=== PATIENT | male | born 1950 | race Caucasian/White ===

== ENCOUNTER → 2017-12-12 | Outpatient (CLI) | payer MEDICARE, MEDICAID ==
[~2017-12-12] MED LIST: COLACE100 MG PO; FLOMAX0.4 MG PO; HYZAAR 50-12.51 EACH PO; LUNESTA3 MG PO; METFORMIN HCL500 MG PO; MOBIC15 MG PO; OMEPRAZOLE 20 M20 M1 PO; OXYCODONE HCL 55 MG PO; PERCOCET PO; XARELTO10 MG PO; ZANAFLEX4 MG PO
== END ==
LOC: M.MRI 13:58
DX: M17.12 Unilateral primary osteoarthritis, left knee (principal)

== ENCOUNTER → 2018-01-06 | Outpatient (CLI) | payer MEDICARE, MEDICAID ==
[2018-01-01 09:15] LABS: HEMATOCRIT 47.9 % (42.0-52.0); HEMOGLOBIN 16.3 gm/dL (14.0-18.0); MCH 31.7 pg (26.0-34.0); MCHC 34.1 g/dL (28.0-37.0); MCV 92.8 fL (80.0-100.0); MPV 7.2 fl. (7.2-11.1); RBC 5.16 mil/uL (4.50-6.00); RDW-CV 13.9 % (10.5-14.5); WBC 9.8 thou/uL (4.0-11.0)
[2018-01-01 09:46] LABS: ALBUMIN 3.7 g/dL (3.4-5.0); CALCIUM 8.7 mg/dL (8.5-10.1); CREATININE 0.8 mg/dL (0.6-1.3); POTASSIUM 4.3 mmol/L (3.5-5.1); TOTAL BILIRUBIN 0.2 mg/dL (<0.1-1.0); TOTAL PROTEIN 8.1 g/dL (6.4-8.2)
[2018-01-01 10:14] LABS: URINE BILIRUBIN NEGATIVE (Negative); URINE BLOOD NEGATIVE (Negative); URINE CLARITY CLEAR; URINE COLOR YELLOW; URINE GLUCOSE-RANDOM NEGATIVE (Negative); URINE KETONES NEGATIVE (Negative); URINE LEUKOCYTES-REFLEX NEGATIVE (Negative); URINE NITRITE-REFLEX NEGATIVE (Negative); URINE PROTEIN NEGATIVE (Negative); URINE UROBILINOGEN 0.2 E.U./dl (0.2-1.0)
--- NOTE | 2018-01-01 16:29 | EKG ---
[place] [address] ELECTROCARDIOGRAM REPORT Name: DEVYN SANDERS Room: PRE IN [facility]#: [id number] Admission: Attend Phys: Janee Painting Discharge: Date of : 50 Report #: [id number] THIS REPORT FOR: //name// [facility] Test Date: 2018-01-01 Test Time: 09:12:48 Pat Name: DEVYN SWARTZNDON Department: Room: Gender: M Electrician Radio: : 1950 Requested By: Richy Reardon Order Number: [id number] Reading MD: Derrell Armstrong Measurements Intervals Ideal Rate: 78 P: 35 UT: 214 QRS: 30 QRSD: 82 T: 69 QT: 364 QTc: 415 Interpretive Statements Sinus rhythm Borderline prolonged UT interval Minimal ST depression, diffuse leads No previous ECG available for comparison Electronically Signed On 01-01-2018 16:29:42 CDT by Derrell Armstrong [email or web address] <ELECTRONICALLY SIGNED> By: Derrell Armstrong MD, [facility] 01/01/18 1629 0912 1 Derrell Armstrong MD, FACC /EPI
[~2018-01-06] VITALS: Ht 175.3 cm; Wt 74.8 kg
== END | disposition still patient (30) ==
LOC: M.PRE → EDSTATUS 07:35 → M.PRE 09:30 → M.TBA 09:53 → M.PRE 09:53 → M.LAB 09:53 → M.PRE 11:09
PROVIDERS: Orthopaedic Surgery
DX: Z01.818 Encounter for other preprocedural examination (principal); M17.12 Unilateral primary osteoarthritis, left knee; I10 Essential (primary) hypertension; E11.9 Type 2 diabetes mellitus without complications; I25.10 Atherosclerotic heart disease of native coronary artery without angina pectoris; J44.9 Chronic obstructive pulmonary disease, unspecified; K21.9 Gastro-esophageal reflux disease without esophagitis; Z87.891 Personal history of nicotine dependence

== ENCOUNTER 2018-01-27 07:36 | Inpatient (IN) | payer MEDICARE, MEDICAID ==
[~2018-01-27] VITALS: Ht 175.3 cm; Wt 74.8 kg
[~2018-01-27 07:36] MED LIST changes: -COLACE100 MG PO; -OXYCODONE HCL 55 MG PO; -PERCOCET PO; -XARELTO10 MG PO
[2018-01-27 15:43] VITALS: BP 135/79
[2018-01-27 20:40] VITALS: BP 152/88
[2018-01-28 00:59] VITALS: BP 160/82
[2018-01-28 04:59] LABS: HEMATOCRIT 41.7 % (42.0-52.0); HEMOGLOBIN 14.1 gm/dL (14.0-18.0)
[2018-01-28 05:11] VITALS: BP 139/91
[2018-01-28 11:30] VITALS: BP 139/91
[2018-01-28 13:29] VITALS: BP 139/91
[2018-01-28] MEDS ORDERED: COLACE100 MG PO (14:13)
[2018-01-28] MEDS ORDERED: XARELTO10 MG PO (14:15)
[2018-01-28] MEDS ORDERED: OXYCODONE HCL 55 MG PO (14:24)
[2018-01-28] MEDS ORDERED: PERCOCET PO (14:33)
--- NOTE | 2018-02-03 09:04 | OP ---
[facility] [address] [place] [address] OPERATIVE REPORT Name: DEVYN SANDERS Room: [address] IN [facility]#: [id number] Admission: 01/27/18 Attend Phys: Janee Painting Discharge: 01/28/18 Date of : 50 Report #: [id number] THIS REPORT FOR: //name// CC: Gregg Bose DATE OF SERVICE: 01/27/2018 PREOPERATIVE DIAGNOSIS: Left knee osteoarthritis. POSTOPERATIVE DIAGNOSIS: Left knee osteoarthritis. PROCEDURE: Left total knee arthroplasty. SURGEON: Richy Reardon II, DO CHECK OUT CASHIER: SAM Keene ANESTHESIA: General endotracheal. ESTIMATED BLOOD LOSS: 50 mL. ANTIBIOTICS: Ancef preoperatively. DRAINS: Medium Hemovac. COMPLICATIONS: None. CONDITION OF PATIENT: Stable to recovery room. IMPLANTS: Listed in the operative record and progress note. BRIEF HISTORY: The patient is seen in the preoperative area. Preoperative H and P was performed. Site was marked. Questions were answered. The risks and benefits were discussed with the patient in detail about surgery. The patient wished to proceed assuming all risks. OPERATIVE PROCEDURE: The patient was taken to the operative suite and placed supine on the operative table and given appropriate anesthesia. The patient had a well-padded tourniquet applied to the upper thigh, was inflated to 300 mmHg after gravity exsanguination. The operative knee was sterilely prepped and draped. Surgery began by a midline incision. This was carried down through subcutaneous tissues. A medial parapatellar arthrotomy was performed and carried down to bone. The patella was then everted and excess soft tissue removed from the femur. Femoral cutting block was then applied, checked with a [facility] [address] [place] [address] OPERATIVE REPORT Name: DEVYN SANDERS Room: [address]#: [id number] Admission: 01/27/18 Attend Phys: Janee Painting Discharge: 01/28/18 Date of : 50 Report #: [id number] drop altagracia for rotational alignment, pinned into appropriate position and appropriate cuts were made. A 4-in-1 cutting block was then applied, checked for rotational alignment, pinned into appropriate position and appropriate cuts were made. Tibia was then exposed. The excess meniscus was removed. Retractors were placed on the collateral ligaments. The tibial cutting block was then applied, pinned into appropriate position, checked with a drop altagracia for rotational alignment and slope and appropriate cut was made. Tibial bone was removed. The tibial baseplate was then applied, checked for rotational alignment with a drop altagracia and pinned into appropriate position. The femur was then applied and box cut was made. This was then trialed with the appropriate spacer, which showed excellent fit and fill and excellent stability of the knee through all range of motion. The patella was then reamed in appropriate fashion and sized to appropriate size. Three peg holes were drilled. It was then trialed and showed to have excellent flexion and extension, excellent tracking of the patella within the groove. These trials were then removed. The tibia was punched in appropriate fashion. Bone ends were cleansed with Pulsavac irrigation. Cement was mixed and applied to the final implants. These were then malleted into position and held the knee in extension and compressed to allow the cement to cure. After it cured, the excess was removed utilizing a [place] and osteotome. The wound was then copiously irrigated and the final spacer was then malleted into position. Tourniquet was deflated. Hemostasis was maintained with electrocautery. Pain cocktail was injected. PRP gel was sprayed throughout the internal aspects of the knee. Medium Hemovac drain was applied. The capsule was closed with 2 FiberWire and 1 Vicryl in a [id number] fashion. Skin was closed with 2-0 Vicryl and running 3-0 Monocryl. Dermabond and sterile dressing applied. Bon wrap and PolarCare applied. The patient was transported to the recovery in stable condition. Counts were correct throughout the procedure. <ELECTRONICALLY SIGNED> By: Richy Reardon II, DO 02/03/18 0904 1754 1903Richy Reardon II, DO /nt
== END 2018-01-28 14:48 | disposition home health service (06) | DRG 470 ==
LOC: M.PRE 07:36 → M.ORTHSURG 08:55 → M.TBA 08:55 → M.ORTHSURG 14:25 → M.PRE 15:49 → M.ORTHSURG 01-28 14:48
PROVIDERS: Orthopaedic Surgery; ADMIT Internal Medicine
PROC: 0SRD0J9 Replacement of Left Knee Joint with Synthetic Substitute, Cemented, Open Approach (ICD-10-PCS; principal; 2018-01-27)
DX: M17.12 Unilateral primary osteoarthritis, left knee (principal); I25.10 Atherosclerotic heart disease of native coronary artery without angina pectoris; E11.9 Type 2 diabetes mellitus without complications; K21.9 Gastro-esophageal reflux disease without esophagitis; I10 Essential (primary) hypertension; G47.00 Insomnia, unspecified; J44.9 Chronic obstructive pulmonary disease, unspecified; F17.210 Nicotine dependence, cigarettes, uncomplicated; Z86.19 Personal history of other infectious and parasitic diseases; Z79.899 Other long term (current) drug therapy; Z95.1 Presence of aortocoronary bypass graft; Z23 Encounter for immunization